=== PATIENT | female | born 2005 | race Hispanic/Latino ===

== ENCOUNTER → 2024-06-23 07:32 | Outpatient (CLI) | payer OTHER, SELFPAY ==
--- NOTE | 2024-06-23 07:34 | DI.US.S_ITS ---
PROCEDURE: US OB >= 14 WEEKS FETUS INDICATIONS: anatomy OUTSIDE/PRIOR DATING DATA: Last menstrual period (LMP): 01/21/2024 LMP-based estimated date of delivery (HUNTER): 10/27/2024 The calculations are made using the working HUNTER of 10/27/2024. TECHNIQUE: Real-time scanning was performed of the fetus, with image documentation and biometric measurements. Endovaginal scanning: Not performed COMPARISON: None. FINDINGS: General: A single living intrauterine gestation is present. Presentation: Breech Placenta: Placental position is anterior, without previa. Amniotic fluid index: 15.1 cm, normal range is 5-24 cm. Single deepest vertical pocket is 5.2 cm. heart rate: 144 beats per minute. Maternal cervical canal: Closed and measures 3.7 cm long. Normal lower limit is 2.5 cm. biometrics: Biparietal diameter: 5.2 cm, 21 weeks, 5 days. Head circumference: 18.5 cm, 20 weeks, 6 days. Abdominal circumference: 17.1 cm, 22 weeks, 0 day. Femur length: 3.5 cm, 21 weeks, 1 day. Clinically estimated gestational age: 22 weeks, 0 day. Composite gestational age from present scan: 21 weeks, 3 days. Estimated weight and percentile: 434 g, 24%. Anatomic survey: Neuro: Ventricles are non-dilated at less than 10 mm. Cisterna magna is normal at 3-11 mm. Cerebellum is normal in size and morphology. Nuchal skin fold: Normal at less than 6 mm between 14-21 weeks gestational age. Face: Nose and lips, facial profile are normal. Spine: No evidence for spina bifida. Heart: 4-chambered heart is present, with normal ventricular outflow tracts. Diaphragm: Diaphragm is intact. Stomach: Left-sided stomach is present. Kidneys: No hydronephrosis. Normal is less than 5 mm in 2nd trimester, less than 7 mm in 3rd trimester. Cord: 3-vessel cord has orthotopic insertion. Bladder: Normal in size. Extremities: All 4 extremities identified. IMPRESSION: 1. Single live intrauterine gestation with fetus in breech presentation. heart rate is 144 beats per minute. Normal MARIA DEL CARMEN at 15.1 cm. 2. Estimated weight is at 24%. 3. Normal anatomic survey. We strive to produce accurate, complete, and clear reports of imaging services. To assist us in improving patient care, this report was composed using standard report templates and voice recognition software. Therefore, it may contain abnormal punctuation, insertions and/or omissions. Occasional wrong-word or sound-alike substitutions may occur. Though we review the report and make efforts to correct it, we do recommend that the report be read carefully in proper context to recognize any text inaccuracies. Dictated by: Parker Bruno M.D. on 06/23/2024 at 9:37 Approved by: Parker Bruno M.D. on 06/23/2024 at 9:39
[2024-06-23 09:18] LABS: Add Manual Diff / Slide Review NO; Basophils Absolute Auto 0 /uL (0-100); Basophils Percent Auto 0.2 % (0-2); Eosinophils Absolute Auto 100 /uL (0-450); Eosinophils Percent Auto 0.6 % (2-4); Hematocrit 32.1 % (36-46); Hemoglobin 11.4 g/dL (12.0-16.0); Lymphocytes Absolute Auto 1900 /uL (1100-4500); Lymphocytes Percent Auto 19.5 % (25-40); Mean Corpuscular HGB Conc 35.4 % (30-36); Mean Corpuscular Hemoglobin 31.5 PG (26-34); Monocytes Absolute Auto 900 /uL (0-900); Monocytes Percent Auto 9.1 % (3-14); Neutrophils Absolute Auto 6900 /uL (1500-7000); Neutrophils Percent Auto 70.6 % (50-75); Platelet Count 220 X10^3/uL (150-400); Red Cell Distribution Width 14.7 % (11.6-14.8); White Blood Cell Count 9.8 X10^3/uL (4.5-11.0)
[2024-06-23 09:22] LABS: Appearance Urine UA CLEAR; Bilirubin Urine UA NEGATIVE (NEGATIVE); Color Urine UA YELLOW; Glucose Urine UA NEGATIVE (Negative); Ketones Urine UA NEGATIVE (NEGATIVE); Leukocyte Esterase Urine UA TRACE (NEGATIVE); Nitrite Urine UA NEGATIVE (Negative); Occult Blood Urine UA NEGATIVE (Negative); Protein Urine UA NEGATIVE (Negative); Urobilinogen Urine UA 0.2 E.U./dL (0.2)
[2024-06-23 09:30] LABS: Amorphous Sediment Urine 1+; Bacteria Urine Many (>30); RBC Urine None Seen (0-5/HPF); Squamous Epithelial Cell Urine 5-10 /HPF (0-5/HPF); Urine Volume 10mL (spun); WBC Urine 0-1/HPF (0-5/HPF)
[2024-06-23 14:48] LABS: Hepatitis B Surface Antigen NEGATIVE s/c (NEGATIVE); Rubella Antibody IgG 34.3 IU/mL (>15)
[2024-06-23 15:03] LABS: HIV 1 & 2 Ab/Ag 4th Gen Combo NEGATIVE (NEGATIVE); Hep C Virus Ab w/Reflex Quant NEGATIVE s/c (NEGATIVE)
[2024-06-24 03:10] LABS: RPR Screen Non Reactive (Non Reactive)
[2024-06-24 10:11] LABS: Varicella IgG Antibody Reactive (Non Reactive)
== END ==
PROVIDERS: Referring Provider Family Medicine; Visit Provider Family Medicine
DX: Z34.02 Encounter for supervision of normal first pregnancy, second trimester (principal); Z3A.21 21 weeks gestation of pregnancy
CPT/HCPCS: 36415; 76811; 80055; 81003; 81015; 86787; 86803; 86850; 86900; 86901; 87086; 87389

== ENCOUNTER → 2024-07-03 08:38 | Outpatient (CLI) | payer OTHER, SELFPAY ==
[2024-07-03 10:09] LABS: Appearance Urine UA CLEAR; Bilirubin Urine UA NEGATIVE (NEGATIVE); Color Urine UA YELLOW; Glucose Urine UA NEGATIVE (Negative); Ketones Urine UA NEGATIVE (NEGATIVE); Leukocyte Esterase Urine UA NEGATIVE (NEGATIVE); Nitrite Urine UA NEGATIVE (Negative); Occult Blood Urine UA NEGATIVE (Negative); Protein Urine UA NEGATIVE (Negative); Specific Gravity Urine UA 1.015 (1.000-1.035); Urobilinogen Urine UA 0.2 E.U./dL (0.2)
[2024-07-03 10:10] LABS: Urine Volume 10mL (spun); pH Urine UA 5.5 (4.5-8.0)
[2024-07-03 10:13] LABS: Bacteria Urine None Seen; Culture Indicated Urine Cult Not Indicated; RBC Urine None Seen (0-5/HPF); Squamous Epithelial Cell Urine None Seen (0-5/HPF); WBC Urine None Seen (0-5/HPF)
== END ==
PROVIDERS: Referring Provider Family Medicine; Visit Provider Family Medicine
DX: R30.0 Dysuria (principal)
CPT/HCPCS: 81001

== ENCOUNTER → 2024-08-04 14:05 | Outpatient (CLI) | payer OTHER, SELFPAY ==
[2024-08-04 15:56] LABS: Add Manual Diff / Slide Review NO; Basophils Absolute Auto 0 /uL (0-100); Basophils Percent Auto 0.2 % (0-2); Eosinophils Absolute Auto 0 /uL (0-450); Eosinophils Percent Auto 0.4 % (2-4); Hematocrit 30.3 % (36-46); Hemoglobin 10.5 g/dL (12.0-16.0); Lymphocytes Absolute Auto 1600 /uL (1100-4500); Mean Corpuscular HGB Conc 34.6 % (30-36); Mean Corpuscular Volume 92.5 fL (80-100); Monocytes Absolute Auto 900 /uL (0-900); Monocytes Percent Auto 9.8 % (3-14); Neutrophils Absolute Auto 6700 /uL (1500-7000); Neutrophils Percent Auto 72.6 % (50-75); Platelet Count 216 X10^3/uL (150-400); Red Blood Cell Count 3.28 X10^6/uL (4.0-5.2); Red Cell Distribution Width 12.8 % (11.6-14.8); White Blood Cell Count 9.3 X10^3/uL (4.5-11.0)
[2024-08-04 16:20] LABS: GTT (PREG) 1 Hour PP 50gm Dose 114 mg/dL (76-139)
== END ==
PROVIDERS: PCP Family Medicine; Referring Provider Family Medicine; Visit Provider Family Medicine
DX: Z34.00 Encounter for supervision of normal first pregnancy, unspecified trimester (principal)
CPT/HCPCS: 36415; 82950; 85025; 86850

== ENCOUNTER → 2024-10-01 11:15 | Outpatient (CLI) | payer OTHER, SELFPAY ==
[2024-10-02 09:28] LABS: Strep Grp B PCR NEG for Grp B Strep
== END ==
PROVIDERS: PCP Family Medicine; Visit Provider Family Medicine
DX: Z34.00 Encounter for supervision of normal first pregnancy, unspecified trimester (principal)
CPT/HCPCS: 87653

== ENCOUNTER 2024-10-13 08:49 | Outpatient (CLI) | payer OTHER, SELFPAY ==
--- NOTE | 2024-10-13 09:37 | PM.OBTRLD ---
Visit Information Visit Information Date of evaluation: 10/13/24 Primary OB Provider: Vane Rizvi Comments/Additional reasons for admission: Pt is a 18yo at 38w0d here due to concerns for LOF. The pt reports feeling a gush of fluid this morning. No vaginal bleeding or contractions. Feeling baby move regularly. PFSH Surgical History [place] teeth extracted Family History Grandfather Diabetes mellitus Social History marital status: number of children: 0 household members: spouse lives independently: Yes caregiver/support person: No housing: apartment ([facility]) pets and animals: No education level: high school occupational status: employed (active duty [employer]) current occupational exposures/hazards: Yes (not since becoming ) special yaniv needs: No travel history: recent ([place], domestic) seatbelt use: always water heater temp set < 120 deg: No working smoke detector in home: Yes fire extinguisher in home: No carbon monox detector in home: Yes firearms in home: No do you feel safe at home: Yes second hand exposure: No alcohol intake: never substance use type: does not use during the past year weight has: remained stable well-balanced diet: about half the time daily servings fruits/ve-4 caffeine: No Type(s) of exercise: walking Evaluation Evaluation Baseline heart rate: 130 Variability: Moderate (6-25) monitor accelerations: Present Monitor Decelerations: Absent Category of Tracing: Reactive Non-invasive Membranes Rupture Test: negative Diagnosis, Plan/Disposition Final Diagnosis (1) Vaginal discharge: Status: Acute Plan/Disposition Plan: 18yo at 38w here due to concerns for LOF. Amniosure negative. Stable for d/c home. OB Disposition: home
== END 2024-10-13 10:15 | disposition home or self-care (01) ==
LOC: LABOR 09:49 → OB 17:36
PROVIDERS: PCP Family Medicine; Referring Provider Family Medicine; Visit Provider Family Medicine
DX: Z03.71 Encounter for suspected problem with amniotic cavity and membrane ruled out (principal)
CPT/HCPCS: 59025; G0378; G0379

== ENCOUNTER 2024-10-28 06:33 | Inpatient (IN) | payer OTHER, SELFPAY ==
[2024-10-28 06:58] LABS: Add Manual Diff / Slide Review NO; Hematocrit 28.4 % (36-46); Hemoglobin 9.6 g/dL (12.0-16.0); Lymphocytes Absolute Auto 2300 /uL (1100-4500); Mean Corpuscular HGB Conc 33.9 % (30-36); Mean Corpuscular Hemoglobin 28.9 PG (26-34); Mean Corpuscular Volume 85.3 fL (80-100); Platelet Count 178 X10^3/uL (150-400)
[2024-10-28 06:59] LABS: Alanine Aminotransferase 12 IU/L (<35); Albumin 3.9 g/dL (3.5-5.0); Albumin Globulin Ratio 1.2 (1.0-2.8); Alkaline Phosphatase 112 U/L (38-126); Blood Urea Nitrogen 14 mg/dL (7-17); Calcium 8.8 mg/dL (8.4-10.2); Carbon Dioxide 19 mmol/L (22-32); Chloride 108 mmol/L (98-107); Estimated Glomerular Filt Rate > 60 mL/min (>60); Globulin 3.2 g/dL (1.7-4.1); Glucose 80 mg/dL (70-99); HEMOLYSIS < 15 (0-50); Potassium 3.6 mmol/L (3.4-5.1); Sodium 134 mmol/L (137-145); Total Protein 7.1 g/dL (6.3-8.2)
[2024-10-28 07:20] LABS: Protein (Total) Urine Random 7 mg/dL (0-12); Protein Creatinine Ratio Urine 0.07 GRAM/24H
--- NOTE | 2024-10-28 08:39 | P.HPOB_ITS ---
OB HPI Date/Time Date of admission: 10/28/24 Date Patient Seen: 10/28/24 History of Present Condition Chief complaint: OBS HUNTER Calculator 2 Estimated Delivery Date Method Current WG Current Estimate 10/27/24 LMP (Certain) 40w 1d Estimated Gestational Age (weeks): 40w1d : 1 Para: 0 Narrative: Pt is a 18yo at 40w1d here in active labor with SROM at home. The pt reports feeling a gush of fluid around 3-4am. She denies any vaginal bleeding. She started meri a couple hours prior to the gush of fluid. They have been increasing in frequency and intensity since then. She continues to feel her baby move regularly. The pts has been uncomplicated. care: good care, initiated at week # (15) and pounds weight gain (27) Dating criteria OB: LMP confirmed by 1st trimester US Ultrasounds: normal 1st trimester US and normal mid trimester US Obstetrical complications: none Medical complications OB: none Preadmission Labs Last OB Lab Results: 2 Blood Type O Positive Today, 06:26 Antibody Screen Negative Today, 06:26 Hct, (36-46) 28.4 % L Today, 04:06 Hgb, (12.0-16.0) 9.6 g/dL L Today, 04:06 Hep Bs Antigen, (NEGATIVE) Negative s/c 06/23/24, 08: 59 Hepatitis C Antibody, (NEGATIVE) Negative s/c 5, 08:59 Rubella Antibody, (>15) 34.3 IU/mL 06/23/24, 08:59 VZV IgG Antibody, (Non Reactive) Reactive 5, 08:59 Glucose 1 Hr 50 gm, (76-139) 114 mg/dL 08/04/24, 1 5:20 Group B Strep (PCR) Neg for grp b strep 10/01/24, 11:16 -: Urine: positive (Lactobacillus) External Labs -: Urine: positive (Lactobacillus) Evaluation Evaluation Baseline heart rate: 140 Variability: Moderate (6-25) monitor accelerations: Present Monitor Decelerations: Absent Contraction Frequency (minutes): 3 Uterine Contraction Intensity: Moderate Status: Category l Dilation (cm): 2 Effacement (%): 90 Dilation: 1-2 cm Effacement: >/=80% station: -1 Position of cervix: anterior Consistency: soft Chamorro score: 10 PFSH Surgical History [place] teeth extracted Family History Grandfather Diabetes mellitus Social History marital status: number of children: 0 household members: spouse lives independently: Yes caregiver/support person: No housing: apartment ([facility]) pets and animals: No education level: high school occupational status: employed (active duty [employer]) current occupational exposures/hazards: Yes (not since becoming ) special yaniv needs: No travel history: recent ([place], domestic) seatbelt use: always water heater temp set < 120 deg: No working smoke detector in home: Yes fire extinguisher in home: No carbon monox detector in home: Yes firearms in home: No do you feel safe at home: Yes Smoking Status: Never smoker second hand exposure: No alcohol intake: never substance use type: does not use during the past year weight has: remained stable well-balanced diet: about half the time daily servings fruits/ve-4 caffeine: No Type(s) of exercise: walking Meds Home Medications and Allergies Home Medications ?Medication ?Instructions ?Recorded ?Confirmed ?Type [id number] 400 mcg-om3 35 mg-dha 25 tab PO 06/16/2409/30 History mg-epa 5 mg-fish oil chewable tablet Double Electric Breast Pump and #1 ea 08/17/24 5 Rx Supplies Allergies Allergy/AdvReac Type Severity Reaction Status Date / Time No Known Drug Allergies Allergy Unverified 10/27/24 11:38 OB Exam Resp Effort & Inspection: normal respiratory effort Auscultation: clear to auscultation bilaterally Cardio Rate: regular rate Rhythm: regular rhythm Heart Sounds: S1 normal, S2 normal and no murmurs GI Inspection: non-distended Palpation: Yes soft and No tender Presentation: vertex Objective Labs 10/28/24 04:06 10/28/24 04:06 Labs: Laboratory Results - last 24 hr 10/28/24 10/28/24 04:06 06:26 WBC 11.2 H RBC 3.33 L Hgb 9.6 L Hct 28.4 L MCV 85.3 MCH 28.9 MCHC 33.9 RDW 13.1 Plt Count 178 Neut % (Auto) 67.2 Lymph % (Auto) 20.6 L [place] % (Auto) 11.7 Eos % (Auto) 0.2 L Baso % (Auto) 0.3 Neut # (Auto) 7500 H Lymph # (Auto) 2300 [place] # (Auto) 1300 H Eos # (Auto) 0 Baso # (Auto) 0 Sodium 134 L Potassium 3.6 Chloride 108 H Carbon Dioxide 19 L BUN 14 Creatinine 0.60 Estimated GFR > 60 BUN/Creatinine Ratio 23.3 H Glucose 80 Calcium 8.8 Total Bilirubin 0.4 AST 30 ALT 12 Alkaline Phosphatase 112 Total Protein 7.1 Albumin 3.9 Globulin 3.2 Albumin/Globulin Ratio 1.2 U Random Total Protein 7 Urine Creatinine 88.89 Protein/Creatinin Ratio 0.07 Assessment and Plan Assessment and Plan Assessment and Plan narrative: Pt is a 18yo at 40w1d here in active labor with SROM at home. Uncomplicated . GBS negative, Rh positive. - Expectant management, anticipate vaginal delivery - FHT reassuring - GBS negative, no prophylaxis needed - Epidural for pain control when desired Time-Based Coding :: [TOTAL MINUTES] spent with patient and on the chart (including review of chart, obtaining history, exam, reviewing outside data, placing orders, documenting exam and treatment plan, and counseling patient) on [DATE].
[2024-10-28] MEDS: LACTATED RINGERS 1,000 ML 100 ML IV ×2 (09:00→13:36)
--- NOTE | 2024-10-28 10:03 | P.PCN_ITS ---
Regional Block Pre-procedure Procedure: Continuous Lumbar Epidural for L&D Attending OB provider: Vane Rizvi PMH/ROS narrative: Healthy term here in spontaneous labor requesting PILLO for labor pain. PSH/Anesthesia history narrative: [place] teeth without anesthetic complication. Exam narrative: See pre-anesthesia eval. ASA Class: II Labs: Hct 28.4 % (36-46) L 10/28/24 04:06 Plt Count 178 X10^3/uL (150-400) 10/28/24 04:06 Medications: Current Medications Generic Name Dose Route Start Last Admin Trade Name Freq PRN Reason Stop Dose Admin Butorphanol Tartrate 0.5 mg 10/28/24 10:01 Butorphanol 1 Mg/Ml Vial IV 10/29/24 10:02 Q3HR PRN PRURITUS Calcium Carbonate 1,000 mg 10/28/24 06:41 Calcium Carbonate 500 Mg Tab PO Q2HR PRN Dyspepsia Carboprost Tromethamine 250 mcg 10/28/24 06:41 Carboprost 250 Mcg/Ml Ampul IM Q90M PRN Bleeding Diphenhydramine HCl 25 mg 10/28/24 10:01 Diphenhydramine 50 Mg/Ml Vial IV 10/29/24 10:02 Q3HR PRN PRURITUS Fentanyl 50 mcg 10/28/24 06:41 Fentanyl 100 Mcg/2 Ml Inj IV Q1H PRN Pain, Moderate (4-6) Lactated Ringer's 1,000 mls @ 100 mls/hr 10/28/24 06:45 Lactated Ringers IV 10/28/24 16:44 CONT CHEO Oxytocin/Lactated Ringer's 30 unit in 500 mls @ 200 mls/hr 10/28/24 06:41 Oxytocin Premix IV CONT PRN Bleeding Protocol Tranexamic Acid 1,000 mg/ 100 mls @ 600 mls/hr 10/28/24 06:41 Sodium Chloride IV NOW PRN Bleeding Oxytocin/Lactated Ringer's 30 unit in 500 mls @ 2 mls/hr 10/28/24 06:45 Oxytocin Premix IV TITRATE CHEO Protocol 2 MILLIUNIT/MIN Lidocaine HCl 20 ml 10/28/24 06:41 Lidocaine 1% 20 Ml INJ INTRA-OP PRN Post Delivery Methylergonovine Maleate 0.2 mg 10/28/24 06:41 Methylergonovine 0.2 Mg Tablet PO Q6HR PRN Heavy Bleeding Methylergonovine Maleate 0.2 mg 10/28/24 06:41 Methylergonovine 0.2 Mg/Ml Vial IM NOW PRN Bleeding Metoclopramide HCl 10 mg 10/28/24 10:01 Metoclopramide 10 Mg/2 Ml Inj IV 10/29/24 10:01 Q4H PRN Nausea Mineral Oil 30 ml 10/28/24 06:41 Mineral Oil 30 Ml Udc TOP PRN PRN Version Misoprostol 800 mcg 10/28/24 06:41 Misoprostol 200 Mcg Tablet TN NOW PRN Bleeding Misoprostol 400 mcg 10/28/24 06:41 Misoprostol 200 Mcg Tablet SL NOW PRN Bleeding Nalbuphine HCl 5 mg 10/28/24 10:01 Nalbuphine 20 Mg/Ml Ampul IV Q6H PRN PRURITIS Naloxone HCl 0.2 mg 10/28/24 06:41 Naloxone 0.4 Mg/Ml Vial IV Q2MIN PRN Opiate Reversal Naloxone HCl 0.4 mg 10/28/24 10:01 Naloxone 0.4 Mg/Ml Vial IV Q2MIN PRN Opiate Reversal Ondansetron HCl 4 mg 10/28/24 06:41 Ondansetron 4 Mg/2 Ml Inj IV Q4HR PRN Nausea And Vomiting Ondansetron HCl 4 mg 10/28/24 10:01 Ondansetron 4 Mg/2 Ml Inj IV 10/29/24 10:01 Q6HR PRN Nausea Oxytocin 10 unit 10/28/24 06:41 Oxytocin 10 Unit/Ml Vial IM NOW PRN Bleeding Allergies: Allergies Allergy/AdvReac Type Severity Reaction Status Date / Time No Known Drug Allergies Allergy Unverified 10/27/24 11:38 Procedure Insertion date: 10/28/24 Insertion time: 09:46 Prep/Local: 1% lidocaine (5mL at L3/4 interspace. CHG to back for skin prep.) Interspace: L3/4 Patient position: sitting Needle: 18 gauge Aalntead Loss of resistance with: saline JOSE DE JESUS at (cm): 5 (5.5) Catheter placed at SKIN (cm): 11 Catheter in SPACE (cm): 6 (5.5) Insertion: No CSF, Yes Blood, No Paresthesia with insertion, No Paresthesia with injection and No Test dose reaction Initial Medications TEST DOSE time: 09:18 TEST DOSE: 1.5% lidocaine with epinephrine 1:200k (mL): 3 BOLUS DOSE time: :20 BOLUS DOSE (mL): 10 BOLUS DOSE med: other (infusate) Infusion INFUSION: 0.125% bupivacaine and with fentanyl 2 mcg/mL Initial rate (mL/hr): 8 Subsequent interventions: 0920 Approximately 10mL blood loss from catheter insertion site (at skin). Held pressure x 10 minutes and applied pressure dressing. No blood return in catheter and negative test dose. 1015 5cc 2% lidocaine and repositioned due to persistent lower pain in the middle. Legs are numb. 1048 Pt now comfortable and taking nap. [address] 2nd PIV. 18g PIV placed in L FA. Pt c/o nausea and 10/10 pain. Epidural bolus given with 5cc 2% lido, 100mcf fentanyl, and 3mL bupi 0.25%. Pt also now febrile. IV tylenol started per Dr. Rizvi. Baby with some late decellerations on monitor. Discussing possibility of transitioning to c- section. Phoned blood bank and requested 2 units of blood crossmatched and would plan to have over ice and on hand in OR were we to transition. 1521 Vaginal delivery of baby girl. Post-procedure Anesthesia date START: 10/28/24 Anesthesia time START: Anesthesia date END: 10/28/24 Anesthesia time END: 15:45 Post-procedure Anesthesia Assessment: Yes CV function: HR/BP stable, Yes Resp function: RR/sat/airway adequate, Yes Post-op hydration adequate, Yes Pain control adequate, Yes Nausea & vomiting absent, Yes Temperature > 36 C, Yes Mental status appropriate and No Anesthesia complications
[2024-10-28] MEDS: ONDANSETRON 4 MG/2 ML INJ IV (12:46)
[2024-10-28] MEDS: FENT 2MCG/ML BUPIV 0.125% EPI 200 MCG/100 ML PLAST..BAG 8 MCG EPIDURAL ×2 (12:47→13:35)
[2024-10-28] MEDS: ACETAMINOPHEN IV 1,000 MG/100 ML VIAL 400 MG IV (12:53)
[2024-10-28] MEDS: AMPICILLIN 2,000 MG in SODIUM CHLORIDE 0.9% 100 ML 200 MG IV ×2 (13:09→19:30)
--- NOTE | 2024-10-28 13:24 | PM.OBPNLAB ---
Date/Time Date Patient Seen: 10/28/24 Time Patient Seen: 12:20 Pain Control Pain control: epidural Pelvic Exam Dilation (cm): 5 Effacement (%): 90 station: -1 Amniotic membrane status: Ruptured Contractions Monitor mode: External Contraction frequency (min): 2 Contraction intensity: Strong/Firm Status status: Category ll Heart Rate Baseline: 170 Monitor Accelerations: Absent Monitor Decelerations: Absent Monitor Variability: Minimal Assessment and Plan Comments: Pt is a 18yo at 40w1d here in active labor with SROM at home. Uncomplicated . GBS negative, Rh positive. FHT with rising baseline now tachycardic, maternal fever present as well. Cannot really assess uterine tenderness due to epidural in place. Does not have prolonged ROM diagnose with chorioamnionitis based on fever and FHT. Pt noted to be quite pale as well, potentially due to infection however does have quite a lot of bloody show with cervical checks. Due to tachycardia and borderline tachysystole, also concerning for possible hidden placental abruption. - Cautious expectant management, OR alerted of case however at this point still anticipate - IV Tylenol due to significant nausea - Ampicillin 2,000mg q6hrs starting now and continuing until afebrile for 24hrs - Gentamycin 5mg/kg now and continuing q24hrs until afebrile for 24hrs - CBC, PT/PTT due to concern for potential abruption - Repeat CMP and pr/cr due to persistently elevated BPs, not to severe range - 2nd IV placed due to high hemorrhage risk. 2 units PRBCs placed on hold.
[2024-10-28 13:25] LABS: Alanine Aminotransferase 16 IU/L (<35); Albumin 3.9 g/dL (3.5-5.0); Albumin Globulin Ratio 1.2 (1.0-2.8); Alkaline Phosphatase 123 U/L (38-126); Blood Urea Nitrogen 10 mg/dL (7-17); Calcium 8.8 mg/dL (8.4-10.2); Carbon Dioxide 17 mmol/L (22-32); Chloride 107 mmol/L (98-107); Estimated Glomerular Filt Rate > 60 mL/min (>60); Globulin 3.3 g/dL (1.7-4.1); Glucose 80 mg/dL (70-99); HEMOLYSIS 50 (0-50); Potassium 3.9 mmol/L (3.4-5.1); Sodium 132 mmol/L (137-145); Total Protein 7.2 g/dL (6.3-8.2)
[2024-10-28] MEDS: SODIUM CHLORIDE 0.9% IV (13:26)
[2024-10-28] MEDS: GENTAMICIN IV (13:26)
[2024-10-28 13:35] LABS: Add Manual Diff / Slide Review NO; Hematocrit 27.8 % (36-46); Hemoglobin 9.6 g/dL (12.0-16.0); Lymphocytes Absolute Auto 600 /uL (1100-4500); Mean Corpuscular HGB Conc 34.4 % (30-36); Mean Corpuscular Hemoglobin 29.5 PG (26-34); Mean Corpuscular Volume 85.6 fL (80-100); Platelet Count 154 X10^3/uL (150-400)
[2024-10-28] MEDS: OXYTOCIN PREMIX 30 UNIT/500 ML PLAST..BAG 200 UNIT IV (15:28)
[2024-10-28 15:30] LABS: Protein (Total) Urine Random 22 mg/dL (0-12); Protein Creatinine Ratio Urine 0.32 GRAM/24H
[2024-10-28] MEDS: TRANEXAMIC ACID 1,000 MG in SODIUM CHLORIDE 0.9% 100 ML 600 MG IV (15:38)
--- NOTE | 2024-10-28 16:03 | P.PCNOB_ITS ---
Labor & Delivery Delivery date: 10/28/24 Intrapartal Events: Mild Preeclampsia and Chorioamnionitis Cervical ripening method: none Induction method: none Delivery monitor: external FHT and external uterine Route of delivery: Episiotomy description: None L&D Laceration Description: Perineal - 2nd Degree Quantitative Blood Loss: 300 Anesthesia Type: Epidural Complications: Chorioamnionitis Pre-eclampsia without severe features Marginal cord insertion Narrative: PROCEDURE: at 40w1d presented in active labor with SROM at home and was admitted to Labor and Delivery. SROM occured at 5:30 with clear fluid. Upon presentation the pts BPs were noted to be elevated. Lab work was negative for pre-eclampsia. Her BPs normalized. The patient progressed through the 1st stage over 9 hours. Pain was controlled with an epidural. After the epidural was in place, the pts BPs cordell again. Lab work on repeat showed elevated Pr/Cr and the pt was diagnosed with pre-eclampsia without severe features. In the 1st stage the pt was diagnosed with chorioamnionitis and started on Ampicillin and Gentamicin. The patient progressed through the 2nd stage over 1 hours and delivered a viable female with APGARs 8/9 at 15:21 via . The cord was cut and clamped after it stopped pulsating. The placenta delivered with gentle cord traction, and appeared complete. The perineum and vagina were inspected with 2nd degree perineal laceration repaired with 2-O Vicryl and then 4-O Chromic due to ongoing superficial bleeding. Due to steady oozing despite adequate fundal tone, TXA was administered. The placenta was inspected and noted to have a marginal cord insertion. Needle and sponge counts were correct.? The vagina was inspected and no items were left in situ. Kait was doing well with Karon, her and her , Paloma, at bedside. PREPROCEDURE DIAGNOSIS: Intrauterine at 40w1d GBS negative RH positive Chorioamnionitis Pre-eclampsia without severe features POSTPROCEDURE DIAGNOSIS: Intrauterine at 40w1d, delivered Same as preprocedure Marginal cord insertion [place] Baby 1: gender: Female Presentation: vertex Position: Left Occiput Anterior Placenta delivery description: Spontaneous Cord Vessel Description: 3 Vessels score (1 min): 8 score (5 min): 9 weight: 8 lb 0.75 oz Plan for aftercare: Routine care and Other (antibiotics for 24hrs )
--- NOTE | 2024-10-28 17:12 | PATH_ITS ---
[facility] Accession Number: [id number] No. of containers..01 Tissue . 01 Material submitted: . placenta - PLACENTA . 01 Diagnosis: PLACENTA: Placenta parenchyma: Weight: 474 grams. Chorionic villi with variable maturation. Mild to moderate inter- and intravillous fibrin is present. Possible villitis present. . Membranes: Marginally inserted. Ruptured 5.1 cm from the nearest placental disc margin. Chorioamnionitis present. . Umbilical cord: 48.1 cm in length. Marginally inserted. Three vessels present. Funisitis present. [facility] 11/03/2024 1137 Local . 01 Electronically signed: . Melania Acevedo MD, Pathologist NPI- [id number] . 01 Gross description: . Received in formalin with two identifiers and placenta, is a discoid vogel placenta with a trimmed weight of 474 grams, measuring 18.7 x 14.4 x 2.8 cm with no accessory lobes identified. . The membranes are madden and translucent with madden thickening across approximately 50% of the membrane surface. They insert at the margin and have a point of rupture 5.1 cm from the nearest disc edge. . The cord is 48.1 cm in length by 1.2 cm in diameter. The cord inserts marginally 1.0 cm from the nearest disc edge and has a leftward coil with an index of approximately 1 twist per 5 cm. Sectioning reveals unremarkable trivascular architecture with no knots or lesions identified. . The surface is blue-beth with normal arborizing vasculature and no lesions identified. . The maternal surface is apparently complete with no lesions or adherent hemorrhage identified. Sectioning reveals red, spongy, unremarkable cut surface with no lesions identified. . Reperesentative sections are submitted as follows: A1-A2: Membrane roll and cord. A3-A5: Central full thickness unremarkable sections. ([id number]) /SIGRID 10/29/2024 1037 Local . 01 Pathologist provided ICD-10: O43.90 . 01 CPT . 928844 Specimen Comment: A courtesy copy of this report has been sent to [phone] Performed at: [address] [facility] [address] [id number], [place], [place] [id number] MD Chad Fleming MD Phone: [phone]
[2024-10-28] MEDS: IBUPROFEN 600 MG TABLET PO ×2 (17:28→23:23)
[2024-10-28] MEDS: SENNOSIDES 8.6 MG TABLET 17.2 MG PO (17:30)
[2024-10-28] MEDS: DERMOPLAST SPRAY 20% 60 ML 1 SPRAY TOP (17:31)
[2024-10-28] MEDS: LANOLIN OINT 7 GM 1 APPLIC TOP (17:31)
[2024-10-28] MEDS: ACETAMINOPHEN 325 MG TABLET 650 MG PO (21:31)
[2024-10-29] MEDS: AMPICILLIN 2,000 MG in SODIUM CHLORIDE 0.9% 100 ML 200 MG IV ×3 (01:14→15:53)
[2024-10-29] MEDS: ACETAMINOPHEN 325 MG TABLET 650 MG PO ×3 (03:31→21:48)
[2024-10-29] MEDS: IBUPROFEN 600 MG TABLET PO ×2 (05:33→18:14)
[2024-10-29 06:02] LABS: Add Manual Diff / Slide Review NO; Hematocrit 24.8 % (36-46); Hemoglobin 8.3 g/dL (12.0-16.0); Lymphocytes Absolute Auto 1100 /uL (1100-4500); Mean Corpuscular HGB Conc 33.7 % (30-36); Mean Corpuscular Hemoglobin 28.8 PG (26-34); Mean Corpuscular Volume 85.6 fL (80-100); Platelet Count 151 X10^3/uL (150-400)
[2024-10-29] MEDS: PRENATAL VIT,CALC/IRON/FOLIC 1 TABLET 1 TAB PO (08:23)
[2024-10-29] MEDS: FERROUS SULFATE 325 MG TABLET PO (08:27)
--- NOTE | 2024-10-29 10:14 | P.PNOB_ITS ---
Subjective - OB Subjective Interval history: The pt is doing well, but remains very fatigued. She has voided, ambulated, and passed flatus. She is working on . Her lochia is decreasing appropriately. Exam Narrative Exam Narrative: Gen: NAD, sitting comfortably in bed, appears well CV: RRR, no murmurs Resp: clear to auscultation bilaterally Abd: soft, appropriately tender, fundus firm and below the umbilicus, nondistended Ext: no edema Objective Labs 10/29/24 05:52 10/28/24 13:00 Labs: Laboratory Results - last 24 hr 10/28/24 10/28/24 10/29/24 13:00 13:16 05:52 WBC 10.1 19.8 H D RBC 3.25 L 2.90 L Hgb 9.6 L 8.3 L Hct 27.8 L 24.8 L MCV 85.6 85.6 MCH 29.5 28.8 MCHC 34.4 33.7 RDW 13.2 13.2 Plt Count 154 151 Neut % (Auto) 89.7 H D 83.8 H Lymph % (Auto) 5.6 L 5.8 L [place] % (Auto) 4.5 10.1 Eos % (Auto) 0.0 L 0.0 L Baso % (Auto) 0.2 0.3 Neut # (Auto) 9100 H 74382 H Lymph # (Auto) 600 L 1100 [place] # (Auto) 500 2000 H Eos # (Auto) 0 0 Baso # (Auto) 0 100 Sodium 132 L Potassium 3.9 Chloride 107 Carbon Dioxide 17 L BUN 10 Creatinine 0.51 L Estimated GFR > 60 BUN/Creatinine Ratio 19.6 Glucose 80 Calcium 8.8 Total Bilirubin 0.7 AST 39 H ALT 16 Alkaline Phosphatase 123 Total Protein 7.2 Albumin 3.9 Globulin 3.3 Albumin/Globulin Ratio 1.2 U Random Total Protein 22 H Urine Creatinine 68.31 Protein/Creatinin Ratio 0.32 Assessment & Plan Plan Comments: Pt is a 18yo PPD#1 s/p complicated by chorioamnionitis and intrapartum pre-eclampsia without severe features. Pt is now doing well. BPs all in normal range, not requiring treatment. Afebrile since delivery. - Normal care - Continue Ampicillin and Gentamicin until 3pm today, then okay to d/c assuming remains afebrile - Iron supplement for anemia - support Time-Based Coding :: 20 spent with patient and on the chart (including review of chart, obtaining history, exam, reviewing outside data, placing orders, documenting exam and treatment plan, and counseling patient) on 10/29/24.
[2024-10-29 11:23] VITALS: TEMP 36.6
[2024-10-29] MEDS: SODIUM CHLORIDE 0.9% IV (14:00)
[2024-10-29] MEDS: GENTAMICIN IV (14:00)
[2024-10-29 18:14] VITALS: TEMP 36.6
[2024-10-30] MEDS: IBUPROFEN 600 MG TABLET PO ×2 (00:52→10:32)
[2024-10-30] MEDS: ACETAMINOPHEN 325 MG TABLET 650 MG PO (05:11)
--- NOTE | 2024-10-30 08:12 | P.DS_ITS ---
Discharge Providers Provider Date of admission: 10/28/24 06:33 Discharge Date: 10/30/24 Primary care physician: Vane Rizvi MD Consults: 10/28/24 16:21 Consult to [employer] Routine Comment: Discharge provider: Ally Walker MD Summary Hospital Course Date Patient Seen: 10/30/24 Time Patient Seen: 07:45 Diagnoses: Term Pre-eclampsia Chorioamnionitis Hospital Course: This is a 18yo G1 now P1 who presented in spontaneous labor with SROM at home. She is PPD#2 s/p complicated by chorioamnionitis and intrapartum pre- eclampsia without severe features. Pt is now doing well. BPs all in normal range, not requiring treatment. Afebrile since delivery. She received antibiotics for 24 hours following delivery. She denies pain. She is well. Bleeding like a menstrual cycle. Peripartum Data Delivery Method: Natural Vaginal Laceration Description: Perineal - 2nd Degree complications: other (chorio) Status at Discharge Cognitive/behavioral status at discharge: oriented Functional status at discharge: independent ambulation Overall status at discharge: patient is back to baseline Time Spent with Patient Time attestation: Total time spent providing and/or coordinating discharge services: 30 Time spent: Greater than 30 minutes Objective Labs 10/29/24 05:52 10/28/24 13:00 Exam Narrative Exam Narrative: NAD, resting comfortably in bed Discharge Plan Discharge Plan Patient Disposition: Home Discharge orders & Medications Prescriptions: New sennosides [senna] 8.6 mg Tablet 17.2 mg PO BEDTIME PRN (Reason: Constipation) Qty: 30 0RF acetaminophen 325 mg Tablet 650 mg PO Q6H PRN (Reason: Pain, Mild (1-3)) Qty: 60 0RF ibuprofen 600 mg Tablet 600 mg PO Q6H Qty: 60 0RF Continued (DME) Double Electric Breast Pump and Supplies See Rx Instructions .ROUTE .MEDSUPPLY Qty: 1 0RF Rx Instructions: As directed [id number] oil 400 mcg-35 mg -25 mg-5 mg tablet,chewable PO Follow up/Referrals: Vane Rizvi MD [Primary Care Provider, Family Practice] Referral Note: Pt has follow up appt with [facility] on Saturday, November 02 @ 12 noon Visit Report/Discharge Packet Stand Alone Forms: Patient Portal/API, Stroke Signs & Symptoms Discharge Data Primary Care Provider: Vane Rizvi
[2024-10-30] MEDS: FERROUS SULFATE 325 MG TABLET PO (10:32)
[2024-10-30] MEDS: PRENATAL VIT,CALC/IRON/FOLIC 1 TABLET 1 TAB PO (10:32)
== END 2024-10-30 12:40 | disposition home or self-care (01) | DRG 805 ==
PROVIDERS: Admitting Provider Family Medicine; PCP Family Medicine; Referring Provider Family Medicine; Visit Provider Family Medicine
DX: O42.02 Full-term premature rupture of membranes, onset of labor within 24 hours of rupture (principal); O41.1230 Chorioamnionitis, third trimester, not applicable or unspecified; Z37.0 Single live birth; O14.04 Mild to moderate pre-eclampsia, complicating childbirth; O76 Abnormality in fetal heart rate and rhythm complicating labor and delivery; O43.193 Other malformation of placenta, third trimester; O70.1 Second degree perineal laceration during delivery; Z3A.40 40 weeks gestation of pregnancy
CPT/HCPCS: 36415; 59050; 59400; 80053; 82570; 84112; 84156; 85025; 86850; 86900; 86901; G0379; J0131; J0290; J2405; J2590; J3010